=== PATIENT | female | born 1955 | race Caucasian/White ===

== ENCOUNTER 2019-03-06 11:36 | Emergency (ER) | payer SELFPAY ==
[2019-03-06] MEDS ORDERED: SODIUM CHLORIDE 0.9% 1000ML 1,000 ML IVS PRN (12:06)
[2019-03-06] MEDS ORDERED: SODIUM CHLORIDE 0.9% (FLUSH) 10 ML SYG IV PRN (12:06)
[2019-03-06] MEDS ORDERED: ONDANSETRON INJ 4 MG/2 ML VIAL IV ONE (12:06)
--- NOTE | 2019-03-06 14:00 | ED.PDOC ---
History of Present Illness - General Chief Complaint: GI Problem Stated Complaint: near syncope and n/v Time Seen by Provider: 03/06/19 12:05 Source: patient, RN notes reviewed, Vital Signs reviewed Exam Limitations: no limitations - History of Present Illness Initial Comments: Patient is a 63-year-old white female who presents status post near syncope with associated nausea and vomiting. Additionally, patient had explosive diarrhea when this occurred. Patient was driving home when she became acutely nauseated. She pulled to the side of the road and as she got out of the car to get in the backseat and let her grandson drive, she slumped to the ground and began to vomit and have diarrhea. Patient denies any loss of consciousness. Patient denies actually striking her head on the ground. Patient denies any pain or symptoms at this time. The symptoms were very severe at the time. She felt better after vomiting and having the diarrhea. Patient states that she has no medical problems. Patient has not seen a doctor in over 20 years. Timing/Duration: 1 hour - Prior to arrival Severity: severe Improving Factors: other - Vomiting Worsening Factors: other - Standing up Associated Symptoms: denies symptoms Allergies/Adverse Reactions: Allergies NO KNOWN ALLERGY Allergy (Verified 03/06/19 12:30) Home Medications: Ambulatory Orders Ondansetron Odt [Zofran ODT] 4 mg PO Q6H #10 tab 03/06/19 Review of Systems - Review of Systems Constitutional: States: see HPI, weakness EENTM: States: no symptoms reported Respiratory: States: no symptoms reported Cardiology: States: see HPI, other - Near syncope. Denies: chest pain, palpitations Gastrointestinal/Abdominal: States: see HPI, diarrhea, nausea, vomiting. Denies: abdominal pain Genitourinary: States: no symptoms reported Musculoskeletal: States: no symptoms reported Skin: States: no symptoms reported Neurological: States: see HPI, weakness Endocrine: States: no symptoms reported Hematologic/Lymphatic: States: no symptoms reported All other Systems: Reviewed and Negative Physical Exam - Physical Exam General Appearance: Alert, Comfortable, No apparent distress, Well Developed, Well Groomed, Well Hydrated, Well Nourished Eye Exam: bilateral normal Ears, Nose, Throat: hearing grossly normal, normal ENT inspection, normal pharynx Neck: non-tender, full range of motion, supple, normal inspection Respiratory: chest non-tender, lungs clear, normal breath sounds, no respiratory distress, no accessory muscle use Cardiovascular/Chest: normal peripheral pulses, regular rate, rhythm, no edema, no gallop, no JVD, no murmur Peripheral Pulses: radial,right: 2+, radial,left: 2+ Gastrointestinal/Abdominal: normal bowel sounds, non tender, soft, no organomegaly, no pulsatile mass Back Exam: normal inspection, no CVA tenderness, no vertebral tenderness Extremity: normal range of motion, non-tender, normal inspection, no pedal edema, no calf tenderness, normal capillary refill, pelvis stable 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 03/06/19 14:04 Informed by nursing that patient is refusing all lab work and medical care. Patient desires to be discharged home at this time. I will give her prescription for Zofran for her nausea. I have recommended she follow-up with her physician. Patient voices understanding and agreement with the plan of care. Garth Ramos M.D. #[id number] - Results/Orders Results/Orders: EKG performed on 06 March 2019 at 1144 hrs.: Normal sinus rhythm at 89 bpm, left axis deviation, low voltage QRS, possible anterior lateral infarct, age indeterminate, no acute ST or T wave changes, abnormal EKG. No previous EKG for comparison. Departure - Departure Clinical Impression: Vasovagal near-syncope, Gastroenteritis Time of Disposition: 14:14 Disposition: Discharge to Home or Self Care Condition: Good Departure Forms: ED Discharge - Pt. Copy, Patient Portal Self Enrollment Instructions: Syncope (Fainting) (DC), Vasovagal Response (DC), Viral Gastroenteritis, Adult (DC) Referrals: Tejal Win MD [Primary Care Provider] - 1-2 Weeks Prescriptions: Ondansetron Odt [Zofran ODT] 4 mg PO Q6H #10 tab Home Medications: Ambulatory Orders Ondansetron Odt [Zofran ODT] 4 mg PO Q6H #10 tab 03/06/19
[2019-03-06 14:41] VITALS: BP 144/90; TEMP 98.6; O2SAT 97
== END 2019-03-06 14:40 | disposition home or self-care (01) ==
LOC: ER 11:36
DX: K52.9 Noninfective gastroenteritis and colitis, unspecified (principal); R55 Syncope and collapse; R94.31 Abnormal electrocardiogram [ECG] [EKG]